=== PATIENT | female | born 1975 | race Caucasian/White ===

== ENCOUNTER 2018-03-22 12:30 | Inpatient (IN) | payer OTHER ==
[~2018-03-22] VITALS: Ht 157.5 cm; Wt 81.6 kg
== END 2018-03-27 11:07 | disposition home or self-care (01) | DRG 743 ==
LOC: ADM 12:30 → EDSTATUS 12:30 → O/R 03-24 06:55 → SURH 03-24 06:55 → OB/GYN 03-24 10:00 → SURH 03-24 19:11
PROVIDERS: Obstetrics & Gynecology
PROC: 0UT90ZZ Resection of Uterus, Open Approach (ICD-10-PCS; principal; 2018-03-24 10:00)
DX: D25.1 Intramural leiomyoma of uterus (principal); D25.0 Submucous leiomyoma of uterus; D25.2 Subserosal leiomyoma of uterus; N93.8 Other specified abnormal uterine and vaginal bleeding